=== PATIENT | female | born 1985 | race Caucasian/White ===

== ENCOUNTER 2023-01-17 13:52 | Emergency (ER) | payer OTHER, SELFPAY ==
[2023-01-17] MEDS ORDERED: traMADol HCl 50 MG TAB ONE (14:24)
== END 2023-01-17 14:38 | disposition home or self-care (01) ==
LOC: NAV ERS 13:52
DX: M54.50 Low back pain, unspecified (principal); F17.210 Nicotine dependence, cigarettes, uncomplicated
CPT/HCPCS: 99283

== ENCOUNTER 2023-10-05 08:55 | Emergency (ER) | payer OTHER, SELFPAY ==
[2023-10-05] MEDS ORDERED: Ondansetron ODT 4 MG TAB ONE (09:23)
[2023-10-05] MEDS ORDERED: Acetaminophen 500 MG TAB ONE (09:23)
[2023-10-05] MEDS ORDERED: HYDROcodone/Acetaminophen 5/325 mg Tablet ONE (10:01)
== END 2023-10-05 10:51 | disposition home or self-care (01) ==
LOC: NAV ERS 08:55
DX: S06.0XAA Concussion with loss of consciousness status unknown, initial encounter (principal); S43.51XA Sprain of right acromioclavicular joint, initial encounter; S80.212A Abrasion, left knee, initial encounter; S90.412A Abrasion, left great toe, initial encounter; F17.210 Nicotine dependence, cigarettes, uncomplicated; W01.0XXA Fall on same level from slipping, tripping and stumbling without subsequent striking against object, initial encounter
CPT/HCPCS: 70450; 72125; Q0162